=== PATIENT | female | born 1970 | race Caucasian/White ===

== ENCOUNTER 2019-10-15 19:33 | Emergency (ER) | payer SELFPAY ==
[2019-10-15] MEDS ORDERED: Acetaminophen 500 MG TAB ONE (20:48)
== END 2019-10-15 20:54 | disposition home or self-care (01) ==
LOC: ERS 19:33
DX: F41.9 Anxiety disorder, unspecified (principal); R11.0 Nausea; M62.830 Muscle spasm of back; M25.50 Pain in unspecified joint; F32.9 Major depressive disorder, single episode, unspecified; I10 Essential (primary) hypertension; Z76.0 Encounter for issue of repeat prescription; Z79.899 Other long term (current) drug therapy
CPT/HCPCS: 99281

== ENCOUNTER 2019-10-23 19:46 | Observation (INO) | payer SELFPAY ==
[2019-10-23] MEDS ORDERED: Ondansetron PF 4 MG/2 ML Vial ONE (20:04)
[2019-10-23 20:11] LABS: #Basophils 0.1 thou/uL (0.0-0.2); #Eosinphils 0.1 thou/uL (0.0-0.7); #Lymphocytes 0.8 thou/uL (1.20-3.40); #Monocytes 0.4 thou/uL (0.11-0.59); #Neutrophils 3.4 thou/uL (1.40-6.50); %Basophils 1.4 % (0.0-1.0); %Eosinophils 1.5 % (0.0-10.0); %Lymphocytes 16.8 % (21.0-51.0); %Monocytes 8.6 % (0.0-10.0); %Neutrophils 71.8 % (42.0-75.0); Hemoglobin 14.8 g/dL (12.0-16.0); Mean Corpuscular HGB CONC 35.5 g/dL (32.0-36.0); Mean Corpuscular Hemoglobin 31.3 pg (27.0-31.0); Mean Corpuscular Volume 88.1 fL (78.0-98.0); Mean Platelet Volume 7.6 fL (7.4-10.4); Platelet Count 282 thou/uL (130-400); RBC Distribution Width 12.3 % (11.5-14.5); Red Blood Cell (RBC) Count 4.72 mill/uL (4.20-5.40); White Blood Cell (WBC) Count 4.8 thou/uL (4.8-10.8)
[2019-10-23 20:26] LABS: ALT (SGPT) 22 U/L (8-55); AST (SGOT) 16 U/L (5-34); Albumin 4.2 g/dL (3.5-5.0); Alkaline Phosphatase 130 U/L (40-110); Anion Gap 12 mmol/L (10-20); BUN (Urea Nitrogen) 10 mg/dL (7.0-18.7); Bilirubin, Total 0.5 mg/dL (0.2-1.2); Calc. Creatinine Clearance 0 mL/min (70-130); Carbon Dioxide 29 mmol/L (22-29); Chloride 89 mmol/L (98-107); Estimated GFR-MDRD 54; Globulin 2.8 g/dL (2.4-3.5); Glucose 74 mg/dL (70-105); Sodium 126 mmol/L (136-145)
[2019-10-23] MEDS ORDERED: Meclizine HCl 25 MG TAB ONE (20:35)
--- NOTE | 2019-10-23 21:55 | CT ---
CT BRAIN NONCONTRAST: DATE: 10/23/2019 HISTORY: 49-year-old female with dizziness FINDINGS: There is no evidence of acute intra-axial or extra-axial hemorrhage. There is no midline shift or any other mass effect. There is no extra-axial fluid collection. There is no evidence of obstructive hydrocephalus. Calvarium is intact. IMPRESSION: No acute intracranial findings.
[2019-10-23] MEDS ORDERED: Acetaminophen 325 MG TAB PO PRN (23:50)
[2019-10-23] MEDS ORDERED: Melatonin 3 MG TAB PO PRN (23:53)
[2019-10-24 00:13] LABS: Acetaminophen Less than 6.0 mcg/mL (10.0-30.0); Alcohol Less than 10 mg/dL (Less than 10); Salicylate Less than 8.0 mg/dL (15.0-30.0)
--- NOTE | 2019-10-24 00:45 | PDOC.HHP ---
Hospitalist HPI - History of Present Illness Dizziness History of Present Illness: 49F reports to the ED today for evaluation of a week of dizziness, which she describes is positional. Reports it started when she re-started Seroquel a week ago after being out of it for 3 weeks. Reports she takes it for bipolar d/o and insomnia. Takes it at night before bed but did not take it last night because the dizziness had gotten worse. Denies headache, focal weakness, vision changes. ED Course: CT brain was negative, labs pertinent for hyponatremia with NA = 126. Patient does not have a current PCP, lives at [facility], recently released from jail. Will be admitted for further work-up. Hospitalist ROS - Review of Systems Constitutional: denies: fever, chills, sweats, weakness, malaise, other Eyes: denies: vision change ENT: denies: ear pain, ear discharge, nose pain, nose discharge, nose congestion , mouth pain, mouth swelling, throat pain, throat swelling, other Respiratory: denies: cough, dry, shortness of breath, hemoptysis, SOB with excertion, pleuritic pain, sputum, wheezing, other Cardiovascular: denies: chest pain, palpitations, orthopnea, paroxysmal noc. dyspnea, edema, light headedness, other Gastrointestinal: reports: nausea. denies: vomiting, abdominal pain, diarrhea Genitourinary: denies: dysuria, frequency, incontinence, hematuria, retention, other Musculoskeletal: reports: back pain (chronic, no new trauma or injury) Skin: denies: rash, lesions, sariah, bruising, other Neurological: reports: other (Dizziness, positional) - Medication Medications: Takes Keppra, Tegretol and Seroquel Hospitalist History - Past Medical History Cardiac: reports: HTN Psych: reports: Anxiety, Bipolar Musculoskeletal: reports: Chronic low back pain ENT: reports: no pertinent history Endocrine: reports: no pertinent history - Past Surgical History Past Surgical History: reports: , Hysterectomy Other Surgical History: Bilateral knee sx, lumbar and cervical spine surgeries - Family History Family History: reports: no pertinent history - Social History Smoking Status: Never smoker Alcohol: reports: None Drugs: reports: none Living Situation: Other (Lives at [facility]) Activity level: independent ambulation - Exam Eye: PERRL ENT: moist mucosa ENT - other findings: poor dentition Neck: supple, no JVD Heart: RRR, normal peripheral pulses Respiratory: CTAB, normal chest expansion Gastrointestinal: soft, non-tender Extremities: no edema Skin: normal turgor Neurological: cranial nerve grossly intact, normal sensation to touch, no weakness Musculoskeletal: normal tone, normal strength Psychiatric: normal affect, A&O x 3 Hospitalist Results - Labs Result Diagrams: 10/23/19 20:00 10/23/19 20:00 Lab results: WBC 4.8 thou/uL (4.8-10.8) 10/23/19 20:00 Hgb 14.8 g/dL (12.0-16.0) 10/23/19 20:00 Hct 41.6 % (36.0-47.0) 10/23/19 20:00 MCV 88.1 fL (78.0-98.0) 10/23/19 20:00 Plt Count 282 thou/uL (130-400) 10/23/19 20:00 Neutrophils % 71.8 % (42.0-75.0) 10/23/19 20:00 Sodium 126 mmol/L (136-145) L 10/23/19 20:00 Potassium 4.0 mmol/L (3.5-5.1) 10/23/19 20:00 Chloride 89 mmol/L (98-107) L 10/23/19 20:00 Carbon Dioxide 29 mmol/L (22-29) 10/23/19 20:00 BUN 10 mg/dL (7.0-18.7) 10/23/19 20:00 Creatinine 1.09 mg/dL (0.6-1.1) 10/23/19 20:00 Glucose 74 mg/dL (70-105) 10/23/19 20:00 Calcium 9.0 mg/dL (7.8-10.44) 10/23/19 20:00 Total Bilirubin 0.5 mg/dL (0.2-1.2) 10/23/19 20:00 AST 16 U/L (5-34) 10/23/19 20:00 ALT 22 U/L (8-55) 10/23/19 20:00 Alkaline Phosphatase 130 U/L (40-110) H 10/23/19 20:00 Serum Total Protein 7.0 g/dL (6.0-8.3) 10/23/19 20:00 Albumin 4.2 g/dL (3.5-5.0) 10/23/19 20:00 Hospitalist H&P A/P - Problem (1) Hyponatremia Code(s): E87.1 - HYPO-OSMOLALITY AND HYPONATREMIA Status: Acute (2) Dizziness Code(s): R42 - DIZZINESS AND GIDDINESS Status: Acute (3) Bipolar 1 disorder Code(s): F31.9 - BIPOLAR DISORDER, UNSPECIFIED Status: Chronic (4) Insomnia Code(s): G47.00 - INSOMNIA, UNSPECIFIED Status: Chronic - Plan Plan: Will fluid restrict and recheck sodium in AM Serum and urine osmolality ordered Hold Seroquel Consult Dr. Juan R MONGE and UA drug screen Meclizine 25mg q8h po DVT/GI prevention started Discussed case with Dr. Gallagher who agrees with plan
[2019-10-24 00:56] VITALS: BMI 24.0
[2019-10-24 01:18] LABS: Bilirubin Negative (Negative); Blood, Urine Negative (Negative); Clarity Clear (Clear); Glucose, Urine (Dipstick) Normal (Negative); Leukocyte Negative Leu/uL (Negative); Nitrite Negative (Negative); Protein, Urine (Dipstick) Negative (Neg-Trace); RBC/HPF 0-3 HPF (0-3); Squamous Epithelial 0-3 HPF (0-3); WBC/HPF None Seen HPF (0-3)
[2019-10-24 01:24] LABS: Amphetamine Not Detected (NotDetected); Barbiturates Screen Not Detected (NotDetected); Benzodiazepine Screen Not Detected (NotDetected); Cocaine Metabolite Screen Not Detected (NotDetected); Medtox Control Line Valid? VALID (VALID); Medtox Reader # READER 4; Methadone Not Detected (NotDetected); Methamphetamine Not Detected (NotDetected); Opiate Screen Not Detected (NotDetected); Oxycodone Screen Not Detected (NotDetected); Phencyclidine (PCP) Not Detected (NotDetected); THC/Cannabinoid Screen Not Detected (NotDetected); Tricyclic Screen Not Detected (NotDetected)
[2019-10-24 01:25] LABS: Bacteria/HPF 1+ HPF (None Seen)
[2019-10-24 01:27] LABS: Urine Culture Reflex Yes Yes
[2019-10-24 05:22] LABS: #Eosinphils 0.1 thou/uL (0.0-0.7); #Monocytes 0.3 thou/uL (0.11-0.59); #Neutrophils 2.5 thou/uL (1.40-6.50); %Basophils 0.3 % (0.0-1.0); %Eosinophils 1.8 % (0.0-10.0); %Lymphocytes 24.9 % (21.0-51.0); %Monocytes 8.4 % (0.0-10.0); %Neutrophils 64.7 % (42.0-75.0); Hemoglobin 13.1 g/dL (12.0-16.0); Mean Corpuscular HGB CONC 35.3 g/dL (32.0-36.0); Mean Corpuscular Hemoglobin 31.2 pg (27.0-31.0); Mean Corpuscular Volume 88.4 fL (78.0-98.0); Mean Platelet Volume 7.5 fL (7.4-10.4); Platelet Count 227 thou/uL (130-400); RBC Distribution Width 12.4 % (11.5-14.5); Red Blood Cell (RBC) Count 4.19 mill/uL (4.20-5.40); White Blood Cell (WBC) Count 3.9 thou/uL (4.8-10.8)
[2019-10-24 05:45] LABS: ALT (SGPT) 17 U/L (8-55); AST (SGOT) 16 U/L (5-34); Albumin 3.6 g/dL (3.5-5.0); Alkaline Phosphatase 107 U/L (40-110); Anion Gap 10 mmol/L (10-20); BUN (Urea Nitrogen) 11 mg/dL (7.0-18.7); Bilirubin, Total 0.6 mg/dL (0.2-1.2); Calc. Creatinine Clearance 98 mL/min (70-130); Calcium 8.6 mg/dL (7.8-10.44); Carbon Dioxide 26 mmol/L (22-29); Chloride 92 mmol/L (98-107); Estimated GFR-MDRD 79; Globulin 2.3 g/dL (2.4-3.5); Glucose 95 mg/dL (70-105); Potassium 4.1 mmol/L (3.5-5.1); Protein, Total 5.9 g/dL (6.0-8.3); Sodium 124 mmol/L (136-145)
[2019-10-24] MEDS: Meclizine HCl 25 MG TAB PO SCH ×3 (05:53→20:18)
[2019-10-24] MEDS: Famotidine 20 MG TAB PO SCH ×2 (08:34→20:18)
[2019-10-24] MEDS: Enoxaparin Sodium 40 MG/0.4 ML SYRINGE SC SCH (08:34)
--- NOTE | 2019-10-24 11:43 | PDOC.HOSPP ---
- Subjective Encounter Date: 10/24/19 Encounter Time: 11:35 Subjective: f/u for dizziness, hyponatremia. Still with dizziness. Appetite good. + insomnia. - Objective Vital Signs & Weight: Vital Signs (12 hours) Temp Pulse Resp BP BP BP BP 10/24/19 11:09 98.4 F 67 14 96/56 L 10/24/19 07:43 98.0 F 65 16 101/58 L 98/63 100/53 L 10/24/19 04:00 97.9 F 65 18 96/53 L 10/24/19 00:45 98.3 F 75 16 98/61 108/65 94/57 L Pulse Ox 10/24/19 11:09 100 10/24/19 07:43 100 10/24/19 04:00 98 10/24/19 00:45 100 Weight Weight 153 lb 4.8 oz I&O: 10/23/19 10/24/19 10/25/19 06:59 06:59 06:59 Intake Total 360 Output Total 431 775 Balance -265 -324 Result Diagrams: 10/24/19 04:56 10/24/19 04:56 Additional Labs: Laboratory Tests 10/23/19 10/24/19 10/24/19 20:00 00:59 04:56 Sodium 126 L Serum Osmolality 257 L Urine Osmolality 462 Radiology Reviewed by me: Yes (CT brain - negative) EKG Reviewed by me: Yes (Tele - SR) Hospitalist ROS - Medication Medications: Active Medications Generic Name Dose Route Start Last Admin Trade Name Freq PRN Reason Stop Dose Admin Enoxaparin Sodium 40 mg 10/24/19 09:00 10/24/19 08:34 Lovenox SC 40 mg 0900 SHAYNE Administration Famotidine 20 mg 10/24/19 09:00 10/24/19 08:34 Pepcid PO 20 mg BID SHAYNE Administration Meclizine HCl 25 mg 10/24/19 06:00 10/24/19 05:53 Antivert PO 25 mg Q8HR SHAYNE Administration Melatonin 6 mg 10/23/19 23:53 10/24/19 01:16 Melatonin PO 6 mg HSPRN PRN Administration Insomnia - Exam General Appearance: NAD, awake alert Eye: PERRL, anicteric sclera ENT: normocephalic atraumatic, no oropharyngeal lesions Neck: supple, symmetric, no JVD, no thyromegaly Heart: RRR, no murmur, no gallops, no rubs, normal peripheral pulses Respiratory: CTAB, no wheezes, no rales, no ronchi, normal chest expansion Gastrointestinal: soft, non-tender, non-distended, normal bowel sounds, no palpable masses Extremities: no cyanosis, no clubbing, no edema Skin: normal turgor, no lesions Neurological: cranial nerve grossly intact, no new deficit Musculoskeletal: normal tone, normal strength, no muscle wasting Psychiatric: normal affect, A&O x 3 Hosp A/P (1) Hyponatremia Code(s): E87.1 - HYPO-OSMOLALITY AND HYPONATREMIA Status: Acute Plan: Suspected iatrogenic, fluid restriction 1.5L/day, serial Na+ monitoring, hold Seroquel (2) Dizziness Code(s): R42 - DIZZINESS AND GIDDINESS Status: Acute Plan: Likely iatrogenic, see above #1 (3) Bipolar 1 disorder Code(s): F31.9 - BIPOLAR DISORDER, UNSPECIFIED Status: Chronic (4) HTN (hypertension) Code(s): I10 - ESSENTIAL (PRIMARY) HYPERTENSION Status: Chronic Qualifiers: Hypertension type: essential hypertension Qualified Code(s): I10 - Essential (primary) hypertension Plan: Continue Lisinopril 5mg daily - Plan old records reviewed/req, social media senior associate, out of bed/ambulate, DVT proph w/SCDs Stable currently Continue fluid restriction 1.5L/day Appreciate Nephrology assistance Hold Seroquel OOB/ambulate AM lab: BMP
[2019-10-24] MEDS ORDERED: Temazepam 15 MG CAP PO PRN (11:51)
--- NOTE | 2019-10-24 12:27 | CON ---
DATE OF CONSULTATION: HISTORY OF PRESENT ILLNESS: Ms. Smith is a 49-year-old white female, who was seen at ER for dizziness. A CAT scan of the brain was done, which showed no acute intracranial abnormality. However, she was noted to be hyponatremic. She is now here for further management. Initially, she was given 1 L of normal saline due to the fact that she was thought to be volume depleted. Serum sodium remains unimproved. The urinalysis does not suggest she is volume depleted. Her dizziness still with her this morning. We are now consulted for the hyponatremia. REVIEW OF SYSTEMS: Positive for dizziness. No chest pain. No confusion. No nausea. No vomiting. No diarrhea. No productive cough. No fever or chills. No abdominal pain. Appetite and energy level are fair. No headache. No diplopia. No syncopal episode. No dysuria. No urinary frequency. MEDICATIONS: Home medications included; 1. Seroquel 50 mg p.o. at bedtime. 2. Keppra 1500 mg p.o. b.i.d. 3. Tegretol 200 mg p.o. t.i.d. 4. Lisinopril 5 mg once a day. Hospital medications includes; 1. Lovenox 40 mg subcu daily. 2. Pepcid 20 mg p.o. b.i.d. 3. Meclizine 25 mg p.o. q.8. 4. Melatonin 6 mg at bedtime. PAST MEDICAL HISTORY: 1. Hypertension. 2. Bipolar disorder. 3. Chronic low back pain. PAST SURGICAL HISTORY: Status post back surgery x4, status post bilateral knee surgery for torn meniscus, status post section x2, and status post hysterectomy. SOCIAL HISTORY: The patient is , originally from [place], but was living in [place] for six years and eventually was incarcerated for drug use. She was just recently released and currently living at [facility] - the patient plans to go back to [place] next week. Two children. Smoked for 20 years, 1 pack a day, currently not smoking. She is a retired clerical worker. Education, high school. Status post methamphetamine use. ALLERGIES: SHE IS ALLERGIC TO MOTRIN. TRAUMA: None. IMMUNIZATIONS: Up-to-date. HOSPITALIZATIONS: Please see past medical history. FAMILY HISTORY: No family history of ESRD. PHYSICAL EXAMINATION: VITAL SIGNS: Blood pressure 100/53, heart rate is 65, respiratory rate 16, temperature 98, and pulse ox 100%. GENERAL: Noted to be awake, alert, comfortable, not in distress. SKIN: Adequate turgor. HEENT: Pinkish conjunctivae. Anicteric sclerae. NECK: No neck mass. No carotid bruits. No JVD. CHEST: No deformities. LUNGS: Clear breath sounds. HEART: Normal sinus rhythm. No murmur. No gallops. No rubs. ABDOMEN: Globular, soft, and nontender. No masses. EXTREMITIES: No edema. No deformities. NEUROLOGIC: Moving all extremities. No asterixis. No ataxia. Oriented to 3 spheres. No tremors. LABORATORY DATA: Laboratories of October 23, 2019, serum sodium was 126. October 24, 2019 at 4:56 a.m.; serum sodium 124, potassium 4.1, chloride 92, carbon dioxide 26, BUN 11, creatinine 0.78, calcium 8.6, AST 16, ALT 17, and albumin 3.6. Serum osmolality 257. Urine osmolality 462. Toxicology negative. CT scan of the brain, negative. ASSESSMENT AND PLAN: 1. Hyponatremia. This could be drug-induced. Please note, this patient has been taking Tegretol and Seroquel as well as Keppra. This medications may play a role in the hyponatremia. The plan is to place her on a strict-free water restriction. We will recheck another basic metabolic. If the basic metabolic will improve a free water restriction and resumption of her psychiatric medications will be recommended. We should resume her psychiatric medications since these have stabilizes the patient's bipolar disorder. Strict free water restriction might do the trick and keeping her serum sodium stable. If no improvement by tonight, we will give the patient tolvaptan 15 mg tablet daily. 2. Hypertension. Currently BP is on the low side. We will hold off lisinopril. Agree with current management. Job ID: [id number]
[2019-10-24] MEDS: carBAMazepine 200 MG TAB PO SCH ×2 (13:59→20:18)
[2019-10-24 18:49] LABS: Anion Gap 11 mmol/L (10-20); BUN (Urea Nitrogen) 12 mg/dL (7.0-18.7); Calc. Creatinine Clearance 82 mL/min (70-130); Calcium 8.7 mg/dL (7.8-10.44); Carbon Dioxide 29 mmol/L (22-29); Chloride 95 mmol/L (98-107); Estimated GFR-MDRD 65; Glucose 105 mg/dL (70-105); Potassium 4.7 mmol/L (3.5-5.1); Sodium 130 mmol/L (136-145)
[2019-10-24] MEDS: levETIRAcetam 500 MG TAB PO SCH (20:18)
[2019-10-25] MEDS: Meclizine HCl 25 MG TAB PO SCH (04:50)
[2019-10-25] MEDS: levETIRAcetam 500 MG TAB PO SCH (08:52)
[2019-10-25] MEDS: Famotidine 20 MG TAB PO SCH (08:52)
[2019-10-25] MEDS: Enoxaparin Sodium 40 MG/0.4 ML SYRINGE SC SCH (08:52)
[2019-10-25] MEDS: carBAMazepine 200 MG TAB PO SCH (08:52)
[2019-10-25] MEDS ORDERED: Lisinopril 5 MG TAB PO SCH (09:00)
--- NOTE | 2019-10-25 09:05 | PRG ---
DATE OF SERVICE: 10/25/2019 SUBJECTIVE: Ms. Smith is a 49-year-old white female, who was seen for hyponatremia. At that time, she was simply placed on a free water restriction. Our feeling is that this is related to her medications. This has already been resumed with strict free water restriction. Serum sodium has improved from 124 to 130. No other complaints today. No chest pain or shortness of breath. OBJECTIVE: VITAL SIGNS: Blood pressure is 108/64, heart rate 64, respiratory rate 14, temperature 98.4, and pulse ox 99%. GENERAL: Awake, alert, comfortable, not in distress. SKIN: Adequate turgor. HEENT: She has pinkish conjunctivae. Anicteric sclerae. NECK: No neck mass. No carotid bruits. No JVD. CHEST: No deformities. LUNGS: Clear breath sounds. No wheezing. No crackles. HEART: Normal sinus rhythm. No murmur. No gallops. No rubs. ABDOMEN: Globular, soft, and nontender. No masses. EXTREMITIES: No edema. No deformities. MEDICATIONS: Medications of October 25, 2019, reviewed. LABORATORY DATA: Laboratories of October 24, 2019, at 1809 hours; sodium 130, potassium 4.7, chloride 95, carbon dioxide 29, BUN 12, creatinine 0.93, and calcium 8.7. ASSESSMENT AND PLAN: 1. Hypotension/dizziness - we will discontinue lisinopril. 2. Hyponatremia - most likely related to her medications for her bipolar disorder. Management is simply free water restriction. Re-advised the patient on 1.5 L fluid restriction. If she gets discharged, she was advised to follow up with her primary care. She is planning to move back to [place] this week. 3. Recheck base met in a.m. if she is still here. Job ID: [id number]
[2019-10-25 11:53] VITALS: BP 98/54; TEMP 98.6
--- NOTE | 2019-10-25 17:36 | DIS ---
DATE OF ADMISSION: 10/23/2019 DATE OF DISCHARGE: 10/25/2019 DISCHARGE DIAGNOSES: 1. Hyponatremia. Suspect iatrogenic, improved. 2. Dizziness secondary to #1, resolving. 3. Bipolar I disorder, stable. 4. Hypertension, chronic, stable. CONSULTATIONS: Dr. Pete with Nephrology Service. PERTINENT LABORATORY AND X-RAY FINDINGS: Sodium ranged between 124 to 130. Creatinine ranged between 0.78 to 1.09. Estimated GFR ranged between 54 to 79, serum osmolality 257. CBC within normal limits. Urine osmolality 462. Urine drug screen dated 10/24/2019, negative. Urine culture dated 10/24/2019, showed no growth at [address] of the brain without contrast dated 10/23/2019, showed no acute intracranial process. HOSPITAL COURSE: The patient was initially observed on the telemetry unit after presenting with dizziness and hyponatremia. The patient was placed on fluid restriction of 1.5 liters per 24 hours and monitored with serial sodium values. The patient's overall trend increased with fluid restriction and the patient was recommended to discontinue Seroquel. Metabolic screening was otherwise unremarkable and the patient remained clinically stable under observation. I have examined the patient at the time of discharge and discussed followup instructions. The patient verbalized understanding and in agreement, ready for discharge on 10/25/2019. DISCHARGE MEDICATIONS: 1. Tegretol 200 mg p.o. t.i.d. 2. Keppra 1500 mg p.o. b.i.d. 3. Lisinopril 5 mg p.o. daily. 4. Temazepam 15 mg p.o. nightly p.r.n. for insomnia. FOLLOWUP: The patient may follow up with [facility] after discharge. CONDITION ON DISCHARGE: Stable. ACTIVITY: Ad-darek. DIET: Regular. Fluid restriction 1.5 liters per 24 hours. CODE STATUS: Full. DISPOSITION: Discharged to [facility], 10/25/2019. Job ID: [id number]
== END 2019-10-25 12:41 | disposition home or self-care (01) ==
LOC: ERS 19:46 → 2SW 23:01
PROVIDERS: ADMIT Internal Medicine; ATTEND Internal Medicine
DX: E87.1 Hypo-osmolality and hyponatremia (principal); I10 Essential (primary) hypertension; F31.9 Bipolar disorder, unspecified; G47.00 Insomnia, unspecified; G89.29 Other chronic pain; M54.5 Low back pain; Z79.899 Other long term (current) drug therapy; Z87.891 Personal history of nicotine dependence; Z88.6 Allergy status to analgesic agent
CPT/HCPCS: 36415; 70450; 80053; 80306; 80307; 81001; 83930; 83935; 85025; 87086; 93005; 96361; 96372; 96374; G0378; J1650; J2405; J8597